=== PATIENT | male | born 1940 | race Caucasian/White ===

== ENCOUNTER 2017-10-25 09:02 | Inpatient (IN) | payer OTHER, BC ==
--- NOTE | 2017-10-25 09:55 | PDOC ---
History of Present Illness <Mukul Bell - Last Filed: 10/25/17 15:51> - General History Source: Patient Exam Limitations: No Limitations - History of Present Illness Presenting Symptoms: Chest Pain Timing/Duration: reports: resolved prior to arrival Severity/Quality: reports: moderate, pressure Location: reports: substernal Chest Pain Radiation: reports: no radiation Activities at Onset: reports: exertion Prior Chest Pain/Cardiac Workup: reports: No prior chest pain Nitro Today/Relief: Yes: no nitro taken today Aspirin Received prior to arrival (Core Measure): Yes: 325 mg x 1 Beta Tobin given by EMS (Core Measure): No Beta Tobin indicated at this time? (Core Measure): No Associated Symptoms: Yes: Chest Pain/pressure <Jessy Queen - Last Filed: 10/25/17 16:00> - General Chief Complaint: Chest Pain Stated Complaint: CHEST PRESSURE Time Seen by Provider: 10/25/17 09:23 - History of Present Illness Initial Comments: 10/25/17 09:30 77-year-old male with history of lymphoma presents to ED with complaints of sudden onset of chest pressure while digging in his front yard this morning. Patient states pressure wasn't tense and did not decrease 325 mg of Nia aspirin. Patient states while in route to the ED his symptoms did resolve. Patient states had no associated symptoms with episode including palpitations, dizziness, nausea, diaphoresis, or difficulty breathing. Patient states has had similar symptoms in the past but normally resolve by itself within seconds when he rests. Pt states did not disclose his symptoms before to Dr. Dailey and has not received a cardiac workup in the past including an echo. 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) Cardiac Disorders: No CVA: No COPD: No CHF: No Dementia: No Diabetes: No GI Disorders: Yes (TUBULAR ADENOMAS; DIVERTICULOSIS) Disorders: No HTN: No Hypercholesterolemia: Yes (DIET CONTROLLED) Liver Disease: No Seizures: No Thyroid Disease: No - Surgical History Abdominal Surgery: No Appendectomy: No Cardiac Surgery: No Cholecystectomy: No Lung Surgery: No Neurologic Surgery: No Orthopedic Surgery: No - Suicide/Smoking/Psychosocial Hx Smoking History: Never smoked Have you smoked in the past 12 months: No Information on smoking cessation initiated: No Hx Alcohol Use: Yes ([facility]) Drug/Substance Use Hx: No Hx Substance Use Treatment: No Patient Lives Alone: No Lives with/in: spouse/SO <Jessy Queen - Last Filed: 10/25/17 16:00> - Past Medical History Allergies/Adverse Reactions: Allergies Allergy/AdvReac Type Severity Reaction Status Date / Time No Known Drug Allergies Allergy Verified 10/25/17 09:06 Home Medications: Ambulatory Orders predniSONE [Deltasone -] 15 mg PO DAILY 10/30/15 Aspirin [Aspirin EC] 325 mg PO ONCE 10/25/17 Cardiac Specific PMH - Complaint Specific PMHX Pacemaker: No <Jessy Queen Last Filed: 10/25/17 16:00> Review of Systems - Review of Systems Able to Perform ROS?: No Constitutional: No: Symptoms Reported HEENTM: No: Symptoms Reported Respiratory: No: Symptoms reported Cardiac (ROS): Yes: Chest Pain, Chest Tightness ABD/GI: No: Symptoms Reported : No: Symptoms Reported Musculoskeletal: No: Symptoms Reported Integumentary: No: Symptoms Reported Neurological: No: Symptoms reported <Jessy Queen Last Filed: 10/25/17 16:00> *Physical Exam - Physical Exam General Appearance: Yes: Nourished, Appropriately Dressed. No: Apparent Distress HEENT: positive: EOMI, ALBERT. negative: Pale Conjunctivae Neck: positive: Supple Respiratory/Chest: positive: Lungs Clear, Normal Breath Sounds. negative: Chest Tender, Respiratory Distress, Accessory Muscle Use Cardiovascular: positive: Regular Rhythm, Regular Rate. negative: Murmur Gastrointestinal/Abdominal: positive: Soft. negative: Tenderness Extremity: positive: Normal Capillary Refill. negative: Pedal Edema Integumentary: positive: Normal Color, Warm, Moist Neurologic: positive: Normal Mood/Affect, Motor Strength 5/5 (ambulatory) <Jessy Queen - Last Filed: 10/25/17 16:00> - Vital Signs Last Vital Signs Temp Pulse Resp BP Pulse Ox 97.5 F L 84 18 138/90 97 10/25/17 09:03 10/25/17 09:03 10/25/17 09:03 10/25/17 09:03 10/25/17 09:03 Heart Score/ECG Review - History History: Slightly suspicious - Electrocardiogram EKG: Normal - Age Age: >/= 65 - Risk Factors Based on the list above the patient has:: No risk factors known - Troponin Troponin: </= normal limit - Score Heart Score - Total: 2 #2 ECG reviewed & interpreted by me at: 14:01 General ECG Interpretation: Sinus Rhythm (Normal sinus rhythm. rate 76. Flipped T waves noted in the to aVF and V5 and V6) - ECG Intrepretation Rhythm: Regular Rhythm (Sinus rhythm with fusion complexes. Rate 72. Early repolarization noted. QTC [address] elevation or depression) <Jessy Queen - Last Filed: 10/25/17 16:00> ED Treatment Course - LABORATORY CBC & Chemistry Diagram: 10/25/17 10:28 10/25/17 10:28 <Mukul Bell - Last Filed: 10/25/17 15:51> - LABORATORY CBC & Chemistry Diagram: 10/25/17 10:28 10/25/17 10:28 <Jessy Queen - Last Filed: 10/25/17 16:00> - ADDITIONAL ORDERS Additional order review: Laboratory Results 10/25/17 10/25/17 10/25/17 10:28 10:28 10:28 PT with INR 11.10 INR 0.98 Sodium 144 Potassium 4.3 Chloride 107 Carbon Dioxide 28 Anion Gap 9 BUN 25 H D Creatinine 1.5 H D Creat Clearance w eGFR 45.38 Random Glucose 88 Calcium 8.7 Magnesium 2.2 Total Bilirubin 0.3 AST 51 H D ALT 25 Alkaline Phosphatase 56 D Creatine Kinase 217 Creatine Kinase Index 5.2 H CK-MB (CK-2) 11.330 H Troponin I 1.69 H* D Total Protein 7.5 Albumin 3.3 L Urine Color Dk yellow Urine Appearance Slcloudy Urine pH 5.0 Ur Specific [place] 1.029 Urine Protein 2+ H Urine Glucose (UA) Negative Urine Ketones Trace H Urine Blood 3+ H Urine Nitrite Negative Urine Bilirubin Negative Urine Urobilinogen 2.0 Ur Leukocyte Esterase Negative Urine WBC (Auto) 5 Urine RBC (Auto) 19 Granular Casts 1 Urine Mucus Many 10/25/17 10:28 RBC Cancelled MCV Cancelled MCHC Cancelled RDW Cancelled MPV Cancelled Neutrophils % Cancelled Lymphocytes % Cancelled Monocytes % Cancelled Eosinophils % Cancelled Basophils % Cancelled - RADIOLOGY Radiology Studies Ordered: Category Date Time Status CHEST PA & LAT [RAD] Stat Radiology 10/25/17 09:39 Completed - Medications Given in the ED: ED Medications Discontinued Medications Generic Name Dose Route Start Last Admin Trade Name Freq PRN Reason Stop Dose Admin Sodium Chloride 1,000 mls @ 1,000 mls/hr 10/25/17 11:45 10/25/17 11:50 Normal Saline - IV 10/25/17 12:44 1,000 mls/hr ASDIR STA Administration Medical Decision Making <ArabellaMukul Sandhue - Last Filed: 10/25/17 15:51> <Jessy Queen - Last Filed: 10/25/17 16:00> - Medical Decision Making 10/25/17 15:51 Dr. Tomas Jane was called regarding the patient at 3:51pm Message left with answering center. [phone] (ArabellaMukul Richa) 10/25/17 09:59 Pt with episodic chest pressure lasting approximately 5 minutes. Patient took 3 and 25 mg of aspirin and came to the ER. Patient states symptoms resolved while in route to the ER. Patient is followed by Drs. Huyen Dailey and has no food taster. Patient concerning for acute coronary syndrome, angina, musculoskeletal pain. Patient with chest pain cardiac workup ordered and will consult patient's primary care doctor Dr. Dailey 10/25/17 11:[address] Hsu and is aware of patient's complaint and will update once labs are resulted. 10/25/17 11:55 Laboratory Tests 10/25/17 10/25/17 10:28 10:28 Sodium 144 Potassium 4.3 Chloride 107 Carbon Dioxide 28 Anion Gap 9 BUN 25 H D Creatinine 1.5 H D Creat Clearance w eGFR 45.38 Random Glucose 88 Calcium 8.7 Magnesium 2.2 Total Bilirubin 0.3 AST 51 H D ALT 25 Creatine Kinase 217 Troponin I 1.69 H* D Albumin 3.3 L Urine Protein 2+ H Urine Blood 3+ H Urine WBC (Auto) 5 Urine RBC (Auto) 19 Urine Mucus Many IVF ordered for labs and consult placed to Dr. Lucinda Marin food taster 10/25/17 13:[address] Lucinda Marin and will consult on patient. Patient will be admitted to telemetry inpatient. Patient made aware and is currently asymptomatic. Second troponin EKG ordered. 10/25/17 15:59 10/25/17 15:39 Laboratory Tests 10/25/17 13:30 Creatine Kinase 402 H Creatine Kinase Index 9.1 H* CK-MB (CK-2) 36.754 H Troponin I 11.00 H* D ordered for heparin drip. Call placed to Dr. Jane food taster 10/25/17 16:[address] Jane and states heparin drip is sufficient . patient does not have chest pain or have any acute changes in his EKG. (Jessy Queen) *DC/Admit/Observation/Transfer <Mukul Bell - Last Filed: 10/25/17 15:51> - Discharge Dispostion Admit: Yes <Jessy Queen - Last Filed: 10/25/17 16:00> Diagnosis at time of Disposition: Left chest pressure, Elevated troponin
[2017-10-25 10:40] LABS: URINE APPEARANCE SLCLOUDY; URINE BILIRUBIN NEGATIVE (<2.0 mg/dL); URINE COLOR DK YELLOW; URINE GLUCOSE (UA) NEGATIVE (NEGATIVE); URINE KETONE TRACE (NEGATIVE); URINE LEUK ESTERASE NEGATIVE (NEGATIVE); URINE NITRITE NEGATIVE (NEGATIVE); URINE PROTEIN 2+ (NEGATIVE)
[2017-10-25 10:43] LABS: GRANULAR CASTS 1 /lpf; URINE MUCUS MANY
[2017-10-25 10:52] LABS: INR 0.98 (0.82-1.09); PROTHROMBIN TIME (PATIENT) 11.1 SEC (9.7-13.0)
[2017-10-25 11:06] LABS: ALBUMIN 3.3 g/dl (3.4-5.0); ANION GAP 9 (8-16); BILIRUBIN,TOTAL 0.3 mg/dL (0.2-1.0); BLOOD UREA NITROGEN 25 mg/dL (7-18); CALCIUM 8.7 mg/dL (8.5-10.1); CHLORIDE 107 mmol/L (98-107); CO2 28 mmol/L (21-32); CREATININE 1.5 mg/dL (0.7-1.3); GLUCOSE,RANDOM 88 mg/dL (74-106); MAGNESIUM 2.2 mg/dL (1.8-2.4); POTASSIUM 4.3 mmol/L (3.5-5.1); SGOT/AST 51 U/L (15-37); SGPT/ALT 25 U/L (12-78); SODIUM 144 mmol/L (136-145); TOT PROT 7.5 g/dl (6.4-8.2)
[2017-10-25 11:22] LABS: ALK PHOS 56 U/L (45-117)
[2017-10-25] MEDS ORDERED: SODIUM CHLORIDE 1,000 ML IV STA (11:45)
--- NOTE | 2017-10-25 14:30 | EKG ---
Test Reason : Blood Pressure : / mmHG Vent. Rate : 076 BPM Atrial Rate : 076 BPM P-R Int : 164 ms QRS Dur : 086 ms QT Int : 368 ms P-R-T Axes : 058 038 007 degrees QTc Int : 414 ms NORMAL SINUS RHYTHM POSSIBLE LEFT ATRIAL ENLARGEMENT NONSPECIFIC T WAVE ABNORMALITY ABNORMAL ECG WHEN COMPARED WITH ECG OF 25-OCT-2017 12:18, NO SIGNIFICANT CHANGE WAS FOUND Confirmed by MD Oni, Cesar ([id number]) on 10/25/2017 2:29:54 PM Referred By: Confirmed By:Cesar Bunn MD
--- NOTE | 2017-10-25 14:31 | EKG ---
Test Reason : Blood Pressure : / mmHG Vent. Rate : 074 BPM Atrial Rate : 074 BPM P-R Int : 154 ms QRS Dur : 090 ms QT Int : 364 ms P-R-T Axes : 048 014 002 degrees QTc Int : 404 ms NORMAL SINUS RHYTHM POSSIBLE LEFT ATRIAL ENLARGEMENT NONSPECIFIC T WAVE ABNORMALITY ABNORMAL ECG WHEN COMPARED WITH ECG OF 25-OCT-2017 09:06, FUSION COMPLEXES ARE NO LONGER PRESENT ST NO LONGER ELEVATED IN INFERIOR LEADS T WAVE INVERSION NOW EVIDENT IN INFERIOR LEADS NONSPECIFIC T WAVE ABNORMALITY NOW EVIDENT IN LATERAL LEADS Confirmed by MD Oni, Cesar ([id number]) on 10/25/2017 2:31:27 PM Referred By: Confirmed By:Cesar Bunn MD
--- NOTE | 2017-10-25 14:32 | EKG ---
Test Reason : Blood Pressure : / mmHG Vent. Rate : 072 BPM Atrial Rate : 072 BPM P-R Int : 146 ms QRS Dur : 090 ms QT Int : 366 ms P-R-T Axes : 057 052 063 degrees QTc Int : 400 ms SINUS RHYTHM WITH MARKED SINUS ARRHYTHMIA WITH FUSION COMPLEXES ST ELEVATION, CONSIDER EARLY REPOLARIZATION, PERICARDITIS, OR INJURY ABNORMAL ECG WHEN COMPARED WITH ECG OF 01-DEC-2013 10:40, FUSION COMPLEXES ARE NOW PRESENT Confirmed by MD Bunn Daniel ([id number]) on 10/25/2017 2:32:17 PM Referred By: Confirmed By:Cesar Bunn MD
[2017-10-25] MEDS ORDERED: HEPARIN NA (PORCINE) 5,000 UNITS/ML 1ML VIAL IVPUSH ONE (15:57)
[2017-10-25] MEDS ORDERED: HEPARIN NA (PORCINE) 5,000 UNITS/ML 1ML VIAL ONE (16:10)
[2017-10-25] MEDS ORDERED: HEPARIN INFUSION - 25,000 UNITS/500 ML INFUS.BAG IVPB ONE (16:10)
[2017-10-25] MEDS: HEPARIN INFUSION - 25,000 UNITS/500 ML INFUS.BAG IVPB SCH (16:14)
[2017-10-25] MEDS ORDERED: CLOPIDOGREL BISULFATE 300 MG TABLET PO ONE (18:17)
--- NOTE | 2017-10-25 18:18 | HP ---
Admitting History and Physical - Primary Care Physician PCP: Jacinta Dailey - Admission Chief Complaint: chest pressure History of Present Illness: 77 yrs old male came to ER for chest pressure-- lasted for about 5 min- no dizziness, SOB, no diaphoresis Never been to see Manager Employment History Source: Patient Limitations to Obtaining History: No Limitations - Past Medical History Heme/Onc: Yes: Other (B cell Lymphoma) - Smoking History Smoking history: Never smoked Have you smoked in the past 12 months: No - Alcohol/Substance Use Hx Alcohol Use: Yes (OCC) Home Medications - Allergies Allergies/Adverse Reactions: Allergies Allergy/AdvReac Type Severity Reaction Status Date / Time No Known Drug Allergies Allergy Verified 10/25/17 09:06 - Home Medications Home Medications: Ambulatory Orders predniSONE [Deltasone -] 15 mg PO DAILY 10/30/15 Aspirin [Aspirin EC] 325 mg PO ONCE 10/25/17 Review of Systems - Review of Systems Constitutional: denies: Chills, Fever Cardiovascular: reports: Chest Pain. denies: Edema, Palpitations, Shortness of Breath Physical Examination Vital Signs: Vital Signs Temperature 98.4 F 10/25/17 16:47 Pulse Rate 73 10/25/17 16:47 Respiratory Rate 19 10/25/17 16:47 Blood Pressure 121/82 10/25/17 16:47 O2 Sat by Pulse Oximetry (%) 98 10/25/17 16:47 Constitutional: Yes: No Distress, Calm Cardiovascular: Yes: Regular Rate and Rhythm Respiratory: Yes: CTA Bilaterally Gastrointestinal: Yes: Normal Bowel Sounds, Soft. No: Tenderness Edema: No Labs: CBC, BMP 10/25/17 16:40 10/25/17 10:28 Imaging - Results Chest X-ray: Image Reviewed EKG: Image Reviewed Problem List - Problems (1) Elevated troponin Code(s): R74.8 - ABNORMAL LEVELS OF OTHER SERUM ENZYMES (2) Left chest pressure Code(s): R07.89 - OTHER CHEST PAIN (3) Lymphoma in remission Code(s): Z85.72 - PERSONAL HISTORY OF NON-HODGKIN LYMPHOMAS (4) NSTEMI (non-ST elevated myocardial infarction) Code(s): I21.4 - NON-ST ELEVATION (NSTEMI) MYOCARDIAL INFARCTION Assessment/Plan PLAN Elevated troponins started Heparin drip Cardiology evaluation start Statins, ASA, PLavix telemetry monitoring continue with prednisone
[2017-10-25 18:33] VITALS: BMI 25.8
[2017-10-25] MEDS: ASPIRIN 325 MG TABLET PO SCH (18:38)
--- NOTE | 2017-10-25 19:34 | PN ---
Progress Note (short form) - Note Progress Note: contacted Dr Jane about elevated troponins - pt does not have chest pain ,SOB Started heparin drip Stat dose-- ASA and Plavix, statin For cath Friday- trend troponins
[2017-10-25] MEDS ORDERED: ATORVASTATIN CA 80 MG TABLET (FP) PO ONE ×2 (19:35→20:00)
[2017-10-25] MEDS: METOPROLOL TARTRATE 25 MG TABLET (FP) PO SCH (21:04)
[2017-10-26] MEDS: HEPARIN INFUSION - 25,000 UNITS/500 ML INFUS.BAG IVPB SCH ×3 (06:34→20:59)
[2017-10-26] MEDS: ASPIRIN 325 MG TABLET PO SCH (09:25)
[2017-10-26] MEDS: METOPROLOL TARTRATE 25 MG TABLET (FP) PO SCH ×2 (09:25→20:59)
--- NOTE | 2017-10-26 09:42 | CON.CARD ---
Consult Consult Specialty:: Cardiology Referred by:: Dr. Rimma Perales Reason for Consultation:: Cardiac evaluation - History of Present Illness Chief Complaint: Chest pressure History of Present Illness: Patient is a 77 year old male with underlying history of Lymphoma currently in remission, received Rituxin (2 years ago) and on Prednisone currently, presents with complaints of mid sternal chest pressure yesterday morning. When he came into ED, chest pain had resolved. He took ASA 325 mg at home. Initial troponin was 1.69 which increased and peaked at 17. During the course of hospital stay, he has remained asymptomatic. He denies chest pain, shortness of breath or palpitation at this time. He denies paroxysmal nocturnal dyspnea or orthopnea. He denies fever or chills. He denies nausea, vomiting, diarrhea or abdominal pain. He denies headache or lightheadedness. ECG revealed sinus rhythm with T wave inversion in inferior and lateral leads. Patient was given IV Heparin, ASA , Plavix and high intensity statin. - History Source History Provided By: Patient, Medical Record Limitations to Obtaining History: No Limitations - Past Medical History Heme/Onc: Yes: Other (Lymphoma) - Past Surgical History Past Surgical History: Yes: Tonsillectomy - Alcohol/Substance Use Hx Alcohol Use: Yes (social) - Smoking History Smoking history: Never smoked Have you smoked in the past 12 months: No Home Medications - Allergies Allergies/Adverse Reactions: Allergies Allergy/AdvReac Type Severity Reaction Status Date / Time No Known Drug Allergies Allergy Verified 10/25/17 09:06 - Home Medications Home Medications: Ambulatory Orders predniSONE [Deltasone -] 15 mg PO DAILY 10/30/15 Aspirin [Aspirin EC] 325 mg PO ONCE 10/25/17 Family Disease History - Family Disease History Other Family History: History of diabetes mellitus Review of Systems - Review of Systems Constitutional: denies: Chills, Fever Cardiovascular: reports: Chest Pain. denies: Palpitations, Shortness of Breath Respiratory: denies: Cough, Hemoptysis, Orthopnea, PND, SOB, SOB on Exertion Gastrointestinal: denies: Abdominal Pain, Constipation, Diarrhea, Melena, Nausea , Rectal Bleeding, Vomiting Genitourinary: denies: Dysuria, Hematuria Musculoskeletal: denies: Back Pain, Joint Pain Neurological: denies: Dizziness, Headache, Numbness, Seizure, Syncope, Weakness Vital Signs: Vital Signs Temperature 98.1 F 10/26/17 06:00 Pulse Rate 76 10/26/17 06:00 Respiratory Rate 16 10/26/17 08:45 Blood Pressure 118/70 10/26/17 06:00 O2 Sat by Pulse Oximetry (%) 93 L 10/26/17 08:45 Constitutional: Yes: Well Nourished Eyes: Yes: PERRL HENT: Yes: Atraumatic Neck: Yes: Supple Respiratory: Yes: CTA Bilaterally Gastrointestinal: Yes: Normal Bowel Sounds, Soft. No: Tenderness Cardiovascular: Yes: Regular Rate and Rhythm JVD: No Carotid Bruit: No PMI: Non-Displaced Heart Sounds: Yes: S1, S2. No: Gallop Murmur: No: Systolic Murmur, Diastolic Murmur Edema: No - Other Data Labs, Other Data: CBC, BMP 10/25/17 16:40 10/25/17 10:28 INR, PTT INR 0.98 (0.82-1.09) 10/25/17 10:28 Troponin, BNP 10/25/17 10/25/17 10/25/17 10:28 13:30 16:40 Troponin I 1.69 H* D 11.00 H* D 17.10 H* D 10/25/17 10/26/17 21:40 05:20 Troponin I 13.44 H* 6.58 H* D Laboratory Results - last 24 hr 10/25/17 10/25/17 10/25/17 10:28 10:28 10:28 WBC Cancelled Corrected WBC (auto) Cancelled RBC Cancelled Hgb Cancelled Hct Cancelled MCV Cancelled MCH Cancelled MCHC Cancelled RDW Cancelled Plt Count Cancelled MPV Cancelled Absolute Neuts (auto) Absolute Lymphs (auto) Absolute Monos (auto) Absolute Eos (auto) Absolute Basos (auto) Add Manual Diff Neutrophils % Cancelled Lymphocytes % Cancelled Monocytes % Cancelled Eosinophils % Cancelled Basophils % Cancelled Nucleated RBC % Cancelled Platelet Estimate Cancelled Platelet Comment Cancelled Normal RBC Morphology PT with INR 11.10 INR 0.98 PTT (Actin FS) D-Dimer Sodium Potassium Chloride Carbon Dioxide Anion Gap BUN Creatinine Creat Clearance w eGFR Random Glucose Calcium Magnesium Total Bilirubin AST ALT Alkaline Phosphatase Creatine Kinase Creatine Kinase Index CK-MB (CK-2) Troponin I Total Protein Albumin Urine Color Dk yellow Urine Appearance Slcloudy Urine pH 5.0 Ur Specific [place] 1.029 Urine Protein 2+ H Urine Glucose (UA) Negative Urine Ketones Trace H Urine Blood 3+ H Urine Nitrite Negative Urine Bilirubin Negative Urine Urobilinogen 2.0 Ur Leukocyte Esterase Negative Urine WBC (Auto) 5 Urine RBC (Auto) 19 Granular Casts 1 Urine Mucus Many 10/25/17 10/25/17 10/25/17 10:28 13:30 13:30 WBC Cancelled Corrected WBC (auto) Cancelled RBC Cancelled Hgb Cancelled Hct Cancelled MCV Cancelled MCH Cancelled MCHC Cancelled RDW Cancelled Plt Count Cancelled MPV Cancelled Absolute Neuts (auto) Absolute Lymphs (auto) Absolute Monos (auto) Absolute Eos (auto) Absolute Basos (auto) Add Manual Diff Neutrophils % Cancelled Lymphocytes % Cancelled Monocytes % Cancelled Eosinophils % Cancelled Basophils % Cancelled Nucleated RBC % Cancelled Platelet Estimate Cancelled Platelet Comment Cancelled Normal RBC Morphology PT with INR INR PTT (Actin FS) D-Dimer Sodium 144 Potassium 4.3 Chloride 107 Carbon Dioxide 28 Anion Gap 9 BUN 25 H D Creatinine 1.5 H D Creat Clearance w eGFR 45.38 Random Glucose 88 Calcium 8.7 Magnesium 2.2 Total Bilirubin 0.3 AST 51 H D ALT 25 Alkaline Phosphatase 56 D Creatine Kinase 217 402 H Creatine Kinase Index 5.2 H 9.1 H* CK-MB (CK-2) 11.330 H 36.754 H Troponin I 1.69 H* D 11.00 H* D Total Protein 7.5 Albumin 3.3 L Urine Color Urine Appearance Urine pH Ur Specific [place] Urine Protein Urine Glucose (UA) Urine Ketones Urine Blood Urine Nitrite Urine Bilirubin Urine Urobilinogen Ur Leukocyte Esterase Urine WBC (Auto) Urine RBC (Auto) Granular Casts Urine Mucus 10/25/17 10/25/17 10/25/17 16:40 16:40 16:40 WBC Cancelled Corrected WBC (auto) Cancelled RBC Cancelled Hgb Cancelled Hct Cancelled MCV Cancelled MCH Cancelled MCHC Cancelled RDW Cancelled Plt Count Cancelled MPV Cancelled Absolute Neuts (auto) Cancelled Absolute Lymphs (auto) Cancelled Absolute Monos (auto) Cancelled Absolute Eos (auto) Cancelled Absolute Basos (auto) Cancelled Add Manual Diff Cancelled Neutrophils % Cancelled Lymphocytes % Cancelled Monocytes % Cancelled Eosinophils % Cancelled Basophils % Cancelled Nucleated RBC % Cancelled Platelet Estimate Cancelled Platelet Comment Cancelled Normal RBC Morphology Cancelled PT with INR INR PTT (Actin FS) D-Dimer 424 Sodium Potassium Chloride Carbon Dioxide Anion Gap BUN Creatinine Creat Clearance w eGFR Random Glucose Calcium Magnesium Total Bilirubin AST ALT Alkaline Phosphatase Creatine Kinase 405 H Creatine Kinase Index 10.7 H* CK-MB (CK-2) 43.592 H Troponin I 17.10 H* D Total Protein Albumin Urine Color Urine Appearance Urine pH Ur Specific [place] Urine Protein Urine Glucose (UA) Urine Ketones Urine Blood Urine Nitrite Urine Bilirubin Urine Urobilinogen Ur Leukocyte Esterase Urine WBC (Auto) Urine RBC (Auto) Granular Casts Urine Mucus 10/25/17 10/25/17 10/26/17 21:40 22:20 05:20 WBC Corrected WBC (auto) RBC Hgb Hct MCV MCH MCHC RDW Plt Count MPV Absolute Neuts (auto) Absolute Lymphs (auto) Absolute Monos (auto) Absolute Eos (auto) Absolute Basos (auto) Add Manual Diff Neutrophils % Lymphocytes % Monocytes % Eosinophils % Basophils % Nucleated RBC % Platelet Estimate Platelet Comment Normal RBC Morphology PT with INR INR PTT (Actin FS) 97.5 H D D-Dimer Sodium Potassium Chloride Carbon Dioxide Anion Gap BUN Creatinine Creat Clearance w eGFR Random Glucose Calcium Magnesium Total Bilirubin AST ALT Alkaline Phosphatase Creatine Kinase 312 H 226 Creatine Kinase Index 10.9 H* 10.1 H* CK-MB (CK-2) 34.249 H 23.019 H Troponin I 13.44 H* 6.58 H* D Total Protein Albumin Urine Color Urine Appearance Urine pH Ur Specific [place] Urine Protein Urine Glucose (UA) Urine Ketones Urine Blood Urine Nitrite Urine Bilirubin Urine Urobilinogen Ur Leukocyte Esterase Urine WBC (Auto) Urine RBC (Auto) Granular Casts Urine Mucus Sinus rhythm with T wave inversion in inferior and lateral leads Imaging - Results Chest X-ray: Report Reviewed (Atelectasis) EKG: Report Reviewed Problem List - Problems (1) CAD (coronary artery disease) Code(s): I25.10 - ATHSCL HEART DISEASE OF [place] CORONARY ARTERY W/O ANG PCTRS Qualifiers: Coronary Disease-Associated Artery/Lesion type: [place] artery [place] vs. transplanted heart: [place] heart Associated angina: with unstable angina Qualified Code(s): I25.110 - Atherosclerotic heart disease of [place] coronary artery with unstable angina pectoris (2) NSTEMI (non-ST elevated myocardial infarction) Code(s): I21.4 - NON-ST ELEVATION (NSTEMI) MYOCARDIAL INFARCTION (3) Lymphoma in remission Code(s): Z85.72 - PERSONAL HISTORY OF NON-HODGKIN LYMPHOMAS (4) Elevated troponin Code(s): R74.8 - ABNORMAL LEVELS OF OTHER SERUM ENZYMES Assessment/Plan 1. CAD post NSTEMI 2. History of Lymphoma on steroids PLAN: 1. IV Heparin for now 2. ASA and Plavix 3. Metoprolol 25 mg BID and Lipitor 80 mg daily until further instruction 4. Discussed indication for cardiac catheterization/coronary angiography +/- PCI /stent. Patient agrees to proceed tomorrow at [facility] and will make arrangement 5. Trend troponin - trending down 6. Transthoracic echocardiography to assess LV/RV and valvular function (to be done in AM) Further plans are to follow Tomas Jane MD
[2017-10-26] MEDS ORDERED: CLOPIDOGREL BISULFATE 75 MG TABLET (FP) PO SCH (10:00)
[2017-10-26] MEDS: ASPIRIN 81 MG CHEWABLE TABLETS PO SCH (10:53)
--- NOTE | 2017-10-26 10:53 | PN ---
Progress Note, Physician Chief Complaint: at bedside no c/o chest pressure - Current Medication List Current Medications: Active Medications Aspirin (Asa -) 81 mg PO DAILY [facility] Atorvastatin Calcium (Lipitor -) 80 mg PO HS [facility] Clopidogrel Bisulfate (Plavix -) 75 mg PO DAILY [facility] Heparin Sodium/Dextrose (Heparin Infusion -) 25,000 units in 500 mls @ 20 mls/ hr IVPB TITR [facility]; 1,000 UNITS/HR PRN Reason: Protocol Last Admin: 10/26/17 06:34 Dose: 800 units/hr, 16 mls/hr Metoprolol Tartrate (Lopressor -) 25 mg PO BID [facility] Last Admin: 10/26/17 09:25 Dose: 25 mg - Objective Vital Signs: Vital Signs Temperature 98.1 F 10/26/17 06:00 Pulse Rate 76 10/26/17 06:00 Respiratory Rate 16 10/26/17 08:45 Blood Pressure 118/70 10/26/17 06:00 O2 Sat by Pulse Oximetry (%) 93 L 10/26/17 08:45 Constitutional: Yes: No Distress Cardiovascular: Yes: Regular Rate and Rhythm Respiratory: Yes: CTA Bilaterally Gastrointestinal: Yes: Normal Bowel Sounds, Soft. No: Tenderness Edema: No Labs: CBC, BMP 10/25/17 16:40 10/25/17 10:28 INR, PTT INR 0.98 (0.82-1.09) 10/25/17 10:28 Problem List - Problems (1) Elevated troponin Code(s): R74.8 - ABNORMAL LEVELS OF OTHER SERUM ENZYMES (2) Left chest pressure Code(s): R07.89 - OTHER CHEST PAIN (3) Lymphoma in remission Code(s): Z85.72 - PERSONAL HISTORY OF NON-HODGKIN LYMPHOMAS (4) NSTEMI (non-ST elevated myocardial infarction) Code(s): I21.4 - NON-ST ELEVATION (NSTEMI) MYOCARDIAL INFARCTION Assessment/Plan PLAN troponins trending down Cardiology eval appreciated On Heparin infusion plan to transfer pt to [facility] for cardiac cath tomorrow continue with Lipitor, Metoprolol, ASA, Plavix
[2017-10-26] MEDS: predniSONE 10 MG TABLET (UD) PO SCH (11:29)
[2017-10-26 12:02] LABS: CHLORIDE 109 mmol/L (98-107); POTASSIUM 4.1 mmol/L (3.5-5.1); SODIUM 142 mmol/L (136-145)
[2017-10-26 12:08] LABS: HEMOGLOBIN 11.6 GM/dL (11.7-16.9); MCH 25.2 pg (25.7-33.7); MCHC 33.3 g/dl (32.0-35.9); MEAN CELL VOLUME 75.6 fl (80-96); MEAN PLT VOLUME 7.2 fl (7.5-11.1); PLATELET COUNT 109 K/MM3 (134-434); RBC 4.63 M/mm3 (4.00-5.60); RDW 17.3 % (11.9-15.9); WHITE BLOOD COUNT 2.2 K/mm3 (4.0-10.0)
[2017-10-26 13:05] LABS: ANION GAP 11 (8-16); BLOOD UREA NITROGEN 20 mg/dL (7-18); CALCIUM 7.6 mg/dL (8.5-10.1); CO2 22 mmol/L (21-32); CREATININE 1.2 mg/dL (0.7-1.3); GLUCOSE,RANDOM 101 mg/dL (74-106)
--- NOTE | 2017-10-26 14:31 | EKG ---
Test Reason : Blood Pressure : / mmHG Vent. Rate : 070 BPM Atrial Rate : 070 BPM P-R Int : 148 ms QRS Dur : 088 ms QT Int : 386 ms P-R-T Axes : 037 005 -61 degrees QTc Int : 416 ms NORMAL SINUS RHYTHM POSSIBLE INFERIOR INFARCT , AGE UNDETERMINED T WAVE ABNORMALITY, CONSIDER LATERAL ISCHEMIA ABNORMAL ECG WHEN COMPARED WITH ECG OF 25-OCT-2017 13:50, BORDERLINE CRITERIA FOR INFERIOR INFARCT ARE NOW PRESENT T WAVE INVERSION NOW EVIDENT IN ANTERIOR LEADS Confirmed by MD Oni, Cesar ([id number]) on 10/26/2017 2:30:57 PM Referred By: Confirmed By:Cesar Bunn MD
[2017-10-26] MEDS: CLOPIDOGREL BISULFATE 75 MG TABLET (FP) PO SCH (20:58)
[2017-10-26] MEDS ORDERED: ATORVASTATIN CA 80 MG TABLET (FP) PO SCH (22:00)
[2017-10-27] MEDS: CLOPIDOGREL BISULFATE 75 MG TABLET (FP) PO SCH (09:47)
[2017-10-27] MEDS: METOPROLOL TARTRATE 25 MG TABLET (FP) PO SCH (09:47)
[2017-10-27] MEDS: predniSONE 10 MG TABLET (UD) PO SCH (09:47)
[2017-10-27] MEDS: ASPIRIN 81 MG CHEWABLE TABLETS PO SCH (09:48)
[2017-10-27 10:42] LABS: INR 1.04 (0.82-1.09); PROTHROMBIN TIME (PATIENT) 11.8 SEC (9.7-13.0)
--- NOTE | 2017-10-27 10:48 | PN ---
Progress Note, Physician Chief Complaint: Not in distress History of Present Illness: Patient was seen and examined. Awake and alert. Chart was reviewed Denies chest pain, SOB or palpitations Discussed indication for cardiac catheterization in detail again. He is to be transferred later this morning to [facility] - Current Medication List Current Medications: Active Medications Aspirin (Asa -) 81 mg PO DAILY [facility] Last Admin: 10/27/17 09:48 Dose: 81 mg Atorvastatin Calcium (Lipitor -) 80 mg PO HS [facility] Last Admin: 10/26/17 20:59 Dose: 80 mg Clopidogrel Bisulfate (Plavix -) 75 mg PO DAILY [facility] Last Admin: 10/27/17 09:47 Dose: 75 mg Heparin Sodium/Dextrose (Heparin Infusion -) 25,000 units in 500 mls @ 20 mls/ hr IVPB TITR [facility]; 1,000 UNITS/HR PRN Reason: Protocol Last Admin: 10/26/17 20:59 Dose: 800 units/hr, 16 mls/hr Metoprolol Tartrate (Lopressor -) 25 mg PO BID [facility] Last Admin: 10/27/17 09:47 Dose: 25 mg Prednisone (Deltasone -) 15 mg PO DAILY [facility] Last Admin: 10/27/17 09:47 Dose: 15 mg - Objective Vital Signs: Vital Signs Temperature 97.6 F 10/27/17 06:00 Pulse Rate 72 10/27/17 06:00 Respiratory Rate 16 10/27/17 06:00 Blood Pressure 126/62 10/27/17 06:00 O2 Sat by Pulse Oximetry (%) 94 L 10/26/17 21:00 Constitutional: Yes: Well Nourished Eyes: Yes: PERRL HENT: Yes: Atraumatic Neck: Yes: Supple Cardiovascular: Yes: Regular Rate and Rhythm, S1, S2 Respiratory: Yes: CTA Bilaterally Gastrointestinal: Yes: Normal Bowel Sounds, Soft. No: Tenderness Edema: No Additional Findings/Remarks: - Review of Systems Constitutional: denies: Chills, Fever Cardiovascular: reports: Chest Pain. denies: Palpitations, Shortness of Breath Respiratory: denies: Cough, Hemoptysis, Orthopnea, PND, SOB, SOB on Exertion Gastrointestinal: denies: Abdominal Pain, Constipation, Diarrhea, Melena, Nausea , Rectal Bleeding, Vomiting Genitourinary: denies: Dysuria, Hematuria Musculoskeletal: denies: Back Pain, Joint Pain Neurological: denies: Dizziness, Headache, Numbness, Seizure, Syncope, Weakness Labs: INR, PTT INR 1.04 (0.82-1.09) 10/27/17 10:14 Laboratory Results - last 24 hr 10/26/17 10/26/17 10/27/17 06:35 11:15 06:30 WBC Corrected WBC (auto) RBC Hgb Hct MCV MCH MCHC RDW Plt Count MPV Neutrophils % Lymphocytes % Monocytes % Eosinophils % Basophils % Nucleated RBC % Platelet Estimate Platelet Comment PT with INR INR PTT (Actin FS) 76.3 H Sodium 142 Potassium 4.1 Chloride 109 H Carbon Dioxide 22 D Anion Gap 11 BUN 20 H Creatinine 1.2 Random Glucose 101 Calcium 7.6 L Creatine Kinase 178 Creatine Kinase Index 9.4 H* CK-MB (CK-2) 16.867 H Troponin I 4.76 H* Triglycerides Cholesterol Total LDL Cholesterol HDL Cholesterol Stool Occult Blood Negative 10/27/17 10/27/17 10/27/17 06:30 06:30 10:14 WBC Cancelled Corrected WBC (auto) Cancelled RBC Cancelled Hgb Cancelled 12.7 Hct Cancelled 37.2 MCV Cancelled 75.3 L MCH Cancelled 25.8 MCHC Cancelled 34.2 RDW Cancelled 17.2 H Plt Count Cancelled MPV Cancelled Neutrophils % Cancelled Lymphocytes % Cancelled Monocytes % Cancelled Eosinophils % Cancelled Basophils % Cancelled Nucleated RBC % Cancelled Platelet Estimate Cancelled Platelet Comment Cancelled PT with INR INR PTT (Actin FS) Sodium 143 Potassium 4.0 Chloride 113 H Carbon Dioxide 24 Anion Gap 6 L BUN 18 Creatinine 1.3 Random Glucose 91 Calcium 8.1 L Creatine Kinase 93 Creatine Kinase Index CK-MB (CK-2) Troponin I 2.70 H* D Triglycerides 233 H D Cholesterol 236 H Total LDL Cholesterol 161 H HDL Cholesterol 47 D Stool Occult Blood 10/27/17 10:14 WBC Corrected WBC (auto) RBC Hgb Hct MCV MCH MCHC RDW Plt Count MPV Neutrophils % Lymphocytes % Monocytes % Eosinophils % Basophils % Nucleated RBC % Platelet Estimate Platelet Comment PT with INR 11.80 INR 1.04 PTT (Actin FS) Sodium Potassium Chloride Carbon Dioxide Anion Gap BUN Creatinine Random Glucose Calcium Creatine Kinase Creatine Kinase Index CK-MB (CK-2) Troponin I Triglycerides Cholesterol Total LDL Cholesterol HDL Cholesterol Stool Occult Blood Problem List - Problems (1) CAD (coronary artery disease) Code(s): I25.10 - ATHSCL HEART DISEASE OF [place] CORONARY ARTERY W/O ANG PCTRS Qualifiers: Coronary Disease-Associated Artery/Lesion type: [place] artery [place] vs. transplanted heart: [place] heart Associated angina: with unstable angina Qualified Code(s): I25.110 - Atherosclerotic heart disease of [place] coronary artery with unstable angina pectoris (2) NSTEMI (non-ST elevated myocardial infarction) Code(s): I21.4 - NON-ST ELEVATION (NSTEMI) MYOCARDIAL INFARCTION (3) Lymphoma in remission Code(s): Z85.72 - PERSONAL HISTORY OF NON-HODGKIN LYMPHOMAS (4) Elevated troponin Code(s): R74.8 - ABNORMAL LEVELS OF OTHER SERUM ENZYMES Assessment/Plan 1. CAD post NSTEMI 2. 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 Low WBC and platelet likely due to #2 PLAN: 1. Discontinue IV Heparin when he is transferred 2. ASA and Plavix 3. Metoprolol 25 mg BID and Lipitor 80 mg daily until further instruction 4. Discussed indication for cardiac catheterization/coronary angiography +/- PCI /stent. Patient agrees to proceed today at [facility] 5. Troponin - trending down 6. Transthoracic echocardiography to assess LV/RV and valvular function Further plans are to follow. Patient was seen, examined and counseled for 25 min Tomas Jane MD
[2017-10-27 10:59] VITALS: BP 110/72; PULSE 85; TEMP 98.5
[2017-10-27 11:38] LABS: HEMATOCRIT 37.2 % (35.4-49); HEMOGLOBIN 12.7 GM/dL (11.7-16.9); MCH 25.8 pg (25.7-33.7); MCHC 34.2 g/dl (32.0-35.9); MEAN CELL VOLUME 75.3 fl (80-96); MEAN PLT VOLUME 7.2 fl (7.5-11.1); PLATELET COUNT 134 K/MM3 (134-434); RBC 4.94 M/mm3 (4.00-5.60); RDW 17.2 % (11.9-15.9)
[2017-10-27 11:51] LABS: ANION GAP 6 (8-16); BLOOD UREA NITROGEN 18 mg/dL (7-18); CALCIUM 8.1 mg/dL (8.5-10.1); CHLORIDE 113 mmol/L (98-107); CHOLESTEROL 236 mg/dL (50-200); CO2 24 mmol/L (21-32); CREATININE 1.3 mg/dL (0.7-1.3); GLUCOSE,RANDOM 91 mg/dL (74-106); HDL CHOLESTEROL 47 mg/dL (40-60); SODIUM 143 mmol/L (136-145); TRIGLYCERIDES 233 mg/dL (35-160)
--- NOTE | 2017-10-27 12:26 | DS ---
Physical Examination Vital Signs: Vital Signs Temperature 98.5 F 10/27/17 10:00 Pulse Rate 85 10/27/17 10:00 Respiratory Rate 18 10/27/17 10:00 Blood Pressure 110/72 10/27/17 10:00 O2 Sat by Pulse Oximetry (%) 96 10/27/17 10:00 Findings/Remarks: pt seen/ examined chart reviewed comfortable denies cp/sob. at beds side troponin coming down scheduled for transfer today for cath - Doni Constitutional: Yes: No Distress, Calm Eyes: Yes: Conjunctiva Clear Neck: Yes: Supple Cardiovascular: Yes: Regular Rate and Rhythm Respiratory: Yes: CTA Bilaterally Gastrointestinal: Yes: Soft Edema: No Neurological: Yes: Alert Labs: CBC, BMP 10/27/17 10:14 10/27/17 06:30 Discharge Summary Reason For Visit: ELEVATED TROPONIN LEVEL Current Active Problems CAD (coronary artery disease) (Acute) Elevated troponin (Acute) Left chest pressure (Acute) Lymphoma in remission (Acute) NSTEMI (non-ST elevated myocardial infarction) (Acute) Hospital Course: Admitted for chest pressure +ve troponins--NSTMI Treated appropriately Continue present care. meds reviewed. Transfer today for Cardiac Cath Discussed with pt / Discussed with nursing staff also Condition: Stable - Instructions Referrals: Jacinta Dailey MD [Primary Care Provider] - Disposition: TRANSFER ACUTE CARE/OTHER HOSP - Home Medications Comprehensive Discharge Medication List: Ambulatory Orders predniSONE [Deltasone -] 15 mg PO DAILY 10/30/15 Aspirin [Aspirin EC] 325 mg PO ONCE 10/25/17
[2017-10-27 12:52] LABS: WHITE BLOOD COUNT 9.9 K/mm3 (4.0-10.0)
--- NOTE | 2017-10-28 09:16 | PN ---
Progress Note (short form) - Note Progress Note: On 10/27/2017, patient underwent LHC at [facility] demonstrating 90% ulcerated LCx-OM lesion, nonobstructive LAD, normal RCA, preserved LV fxn with normal LVEDP 8 mmHg and mild anterolateral hypokinesis. Patient underwent implant Synergy 2.5 x 32 mm RHONA post-dilated with NC Euphora 2.75 x 20 mm@ 14 WILLARD. Mynx deployed Rt JUNIOR [place] access site, no complications, stable for optimal medical therapy for secondary prevention of cardiovascular disease and f/u with cardiology office . Primary team informed of care plan.
== END 2017-10-27 14:44 | disposition short-term general hospital (02) | DRG 281 ==
LOC: JER 09:02 → JERBED 13:04 → J4W 17:54
PROVIDERS: ADMIT Internal Medicine; ATTEND Internal Medicine
DX: I21.4 Non-ST elevation (NSTEMI) myocardial infarction (principal); J98.11 Atelectasis; I25.10 Atherosclerotic heart disease of native coronary artery without angina pectoris; Z85.72 Personal history of non-Hodgkin lymphomas
CPT/HCPCS: 36415; 71046-TC-FY; 80048; 80053; 80061; 81003; 81015; 82272; 82550; 82553; 83721; 83735; 84484; 85027; 85379; 85610; 85730; 93005; 93010; 93306-TC; 99285-25; J1644; J7030

== ENCOUNTER 2021-05-16 04:36 | Day surgery (SDC) | payer OTHER, BC ==
[2021-05-14 13:18] VITALS: BMI 23.2
[2021-05-16 09:01] VITALS: TEMP 97.1
[2021-05-16 09:28] VITALS: BP 103/64; PULSE 68
== END 2021-05-16 10:18 | disposition home or self-care (01) ==
LOC: JASU-ENDO 04:36
PROVIDERS: ATTEND Internal Medicine Gastroenterology
PROC: 0DBL8ZX Excision of Transverse Colon, Via Natural or Artificial Opening Endoscopic, Diagnostic (ICD-10-PCS; 2021-05-16)
PROC: 0DBH8ZX Excision of Cecum, Via Natural or Artificial Opening Endoscopic, Diagnostic (ICD-10-PCS; principal; 2021-05-16 08:00)
DX: Z12.11 Encounter for screening for malignant neoplasm of colon (principal); Z86.010 Personal history of colon polyps; D12.0 Benign neoplasm of cecum; D12.3 Benign neoplasm of transverse colon; K64.8 Other hemorrhoids; K57.30 Diverticulosis of large intestine without perforation or abscess without bleeding
CPT/HCPCS: 88305-TC

== ENCOUNTER 2022-05-15 07:48 | Inpatient (IN) | payer OTHER, BC ==
[2022-05-15 08:00] VITALS: BMI 22.2
[2022-05-15 10:33] LABS: CHLORIDE 109 mmol/L (98-107); SODIUM 145 mmol/L (136-145)
[2022-05-15 10:35] LABS: BLOOD UREA NITROGEN 72.8 mg/dL (7-18); CALCIUM 8.4 mg/dL (8.5-10.1)
[2022-05-15 10:36] LABS: ALBUMIN 2.7 g/dl (3.4-5.0); ANION GAP 13 MMOL/L (8-16); CO2 23 mmol/L (21-32); GLUCOSE,RANDOM 94 mg/dL (74-106); LACTIC ACID 2.2 mmol/L (0.4-2.0)
[2022-05-15 10:36] LABS: INR 1.09 (0.83-1.09); PROTHROMBIN TIME (PATIENT) 12.5 SEC (9.7-13.0)
[2022-05-15 10:39] LABS: SGOT/AST 34 U/L (15-37); SGPT/ALT 22 U/L (13-61)
[2022-05-15 10:41] LABS: BILIRUBIN,TOTAL 0.3 mg/dL (0.2-1); TOT PROT 6.6 g/dl (6.4-8.2)
[2022-05-15 10:42] LABS: ALK PHOS 94 U/L (45-117)
[2022-05-15 10:45] LABS: CHLORIDE 109 mmol/L (98-107); SODIUM 144 mmol/L (136-145)
[2022-05-15 10:47] LABS: CREATININE 10.2 mg/dL (0.55-1.3)
[2022-05-15 10:47] LABS: CALCIUM 8.2 mg/dL (8.5-10.1)
[2022-05-15 10:48] LABS: ALBUMIN 2.6 g/dl (3.4-5.0); ANION GAP 10 MMOL/L (8-16); BLOOD UREA NITROGEN 71.5 mg/dL (7-18); CO2 25 mmol/L (21-32); EPI CELLS 3 /uL (0-25.1); GLUCOSE,RANDOM 100 mg/dL (74-106); HYALINE CASTS 0 /uL (0-3.1); URINE APPEARANCE CLEAR; URINE BACTERIA 6 /uL (0-1359); URINE BILIRUBIN NEGATIVE (NEGATIVE); URINE COLOR YELLOW; URINE GLUCOSE (UA) NEGATIVE (NEGATIVE); URINE KETONE NEGATIVE (NEGATIVE); URINE LEUK ESTERASE NEGATIVE (NEGATIVE); URINE NITRITE NEGATIVE (NEGATIVE); URINE PROTEIN 2+ (NEGATIVE); URINE RBC 34 /uL (0-23.9); URINE UROBILINOGEN 0.2 mg/dL (0.2-1.0); URINE WBC 6 /uL (0-25.8)
[2022-05-15 10:51] LABS: SGOT/AST 33 U/L (15-37); SGPT/ALT 21 U/L (13-61)
[2022-05-15 10:54] LABS: ALK PHOS 91 U/L (45-117); BILIRUBIN,TOTAL 0.5 mg/dL (0.2-1)
[2022-05-15 11:02] LABS: HEMOGLOBIN 10.5 GM/dL (11.7-16.9); MCH 24.3 pg (25.7-33.7); MCHC 32.9 g/dl (32.0-35.9); MEAN CELL VOLUME 73.8 fl (80-96); MEAN PLT VOLUME 7.5 fl (7.5-11.1); RBC 4.34 M/mm3 (4.00-5.60)
[2022-05-15 11:03] LABS: WHITE BLOOD COUNT 20.6 K/mm3 (4.0-10.0)
[2022-05-15 11:04] LABS: PLATELET COUNT 150 10^3/uL (134-434)
[2022-05-15 11:05] LABS: CREATININE 10.2 mg/dL (0.55-1.3)
[2022-05-15 11:45] LABS: ANISOCYTOSIS 2+; PLATELET ESTIMATE ADEQUATE; ROULEAU 2+
[2022-05-15] MEDS ORDERED: SODIUM CHLORIDE 0.45% 1,000 ML IV SCH (13:45)
[2022-05-15] MEDS: SODIUM CHLORIDE 0.45% 1,000 ML IV SCH (13:48)
[2022-05-15] MEDS: ACETAMINOPHEN 325 MG TABLET (FP) PO PRN (20:22)
[2022-05-16] MEDS: LEVOTHYROXINE NA 25 MCG TABLET (FP) PO SCH (06:31)
[2022-05-16] MEDS ORDERED: predniSONE 5 MG TABLET (UD) PO SCH (10:00)
[2022-05-16 10:15] LABS: CHLORIDE 112 mmol/L (98-107); SODIUM 143 mmol/L (136-145)
[2022-05-16 10:20] LABS: CALCIUM 7.8 mg/dL (8.5-10.1)
[2022-05-16 10:21] LABS: ALBUMIN 2.2 g/dl (3.4-5.0); ANION GAP 10 MMOL/L (8-16); BLOOD UREA NITROGEN 66.5 mg/dL (7-18); CO2 21 mmol/L (21-32); GLUCOSE,RANDOM 85 mg/dL (74-106)
[2022-05-16 10:23] LABS: SGPT/ALT 15 U/L (13-61)
[2022-05-16 10:24] LABS: SGOT/AST 26 U/L (15-37)
[2022-05-16 10:25] LABS: BILIRUBIN,TOTAL 0.4 mg/dL (0.2-1); TOT PROT 5.8 g/dl (6.4-8.2)
[2022-05-16 10:26] LABS: ALK PHOS 73 U/L (45-117)
[2022-05-16 10:37] LABS: HEMATOCRIT 28.5 % (35.4-49); HEMOGLOBIN 9.5 GM/dL (11.7-16.9); MCH 24.7 pg (25.7-33.7); MCHC 33.3 g/dl (32.0-35.9); MEAN CELL VOLUME 74.4 fl (80-96); MEAN PLT VOLUME 7.5 fl (7.5-11.1); RBC 3.83 M/mm3 (4.00-5.60); RDW 18.6 % (11.9-15.9)
[2022-05-16 10:38] LABS: WHITE BLOOD COUNT 15.3 K/mm3 (4.0-10.0)
[2022-05-16 10:39] LABS: PLATELET COUNT 107 10^3/uL (134-434)
[2022-05-16 11:24] LABS: CREATININE 9.4 mg/dL (0.55-1.3)
[2022-05-16 11:27] LABS: ANISOCYTOSIS 2+; MACROCYTOSIS 0
[2022-05-16 12:45] LABS: EPI CELLS 1 /uL (0-25.1); HYALINE CASTS 0 /uL (0-3.1); URINE APPEARANCE CLEAR; URINE BACTERIA 4 /uL (0-1359); URINE BILIRUBIN NEGATIVE (NEGATIVE); URINE COLOR YELLOW; URINE GLUCOSE (UA) NEGATIVE (NEGATIVE); URINE KETONE NEGATIVE (NEGATIVE); URINE LEUK ESTERASE NEGATIVE (NEGATIVE); URINE NITRITE NEGATIVE (NEGATIVE); URINE PROTEIN 1+ (NEGATIVE); URINE RBC 10 /uL (0-23.9); URINE UROBILINOGEN 0.2 mg/dL (0.2-1.0); URINE WBC 3 /uL (0-25.8)
[2022-05-16] MEDS: SODIUM CHLORIDE 0.45% 1,000 ML IV SCH (16:25)
[2022-05-17] MEDS: LEVOTHYROXINE NA 25 MCG TABLET (FP) PO SCH (06:28)
[2022-05-17] MEDS: SODIUM CHLORIDE 0.45% 1,000 ML IV SCH ×3 (06:30→16:07)
[2022-05-17 09:41] LABS: CHLORIDE 113 mmol/L (98-107); SODIUM 143 mmol/L (136-145)
[2022-05-17] MEDS: predniSONE 5 MG TABLET (UD) PO SCH (09:43)
[2022-05-17 09:48] LABS: BLOOD UREA NITROGEN 66.5 mg/dL (7-18); GLUCOSE,RANDOM 89 mg/dL (74-106)
[2022-05-17 09:50] LABS: ALBUMIN 2.2 g/dl (3.4-5.0); CALCIUM 7.6 mg/dL (8.5-10.1)
[2022-05-17 09:51] LABS: ANION GAP 10 MMOL/L (8-16); CO2 20 mmol/L (21-32); SGOT/AST 24 U/L (15-37)
[2022-05-17 09:52] LABS: BILIRUBIN,TOTAL 0.7 mg/dL (0.2-1)
[2022-05-17 09:53] LABS: ALK PHOS 70 U/L (45-117); SGPT/ALT 16 U/L (13-61)
[2022-05-17 09:54] LABS: CREATININE 8.5 mg/dL (0.55-1.3)
[2022-05-17 11:04] LABS: HEMATOCRIT 25.9 % (35.4-49); HEMOGLOBIN 8.9 GM/dL (11.7-16.9); MCHC 34.3 g/dl (32.0-35.9); MEAN CELL VOLUME 72.9 fl (80-96); MEAN PLT VOLUME 8.5 fl (7.5-11.1); PLATELET COUNT 95 10^3/uL (134-434); RBC 3.56 M/mm3 (4.00-5.60); RDW 18.4 % (11.9-15.9)
[2022-05-17 11:05] LABS: WHITE BLOOD COUNT 13.5 K/mm3 (4.0-10.0)
[2022-05-17] MEDS: CLOPIDOGREL BISULFATE 75 MG TABLET (FP) PO SCH (12:38)
[2022-05-17 14:12] LABS: ANISOCYTOSIS 2+; MACROCYTOSIS 0; ROULEAU 1+
[2022-05-17] MEDS: HEPARIN NA (PORCINE) 5,000 UNITS/ML 1ML VIAL SQ SCH ×2 (16:06→22:15)
[2022-05-17 17:07] LABS: FREE KAPPA,SERUM 27.2 mg/L (3.3-19.4)
[2022-05-17] MEDS: ROSUVASTATIN CA 10 MG TABLET PO SCH (22:15)
[2022-05-18] MEDS: LEVOTHYROXINE NA 25 MCG TABLET (FP) PO SCH (06:57)
[2022-05-18] MEDS: CLOPIDOGREL BISULFATE 75 MG TABLET (FP) PO SCH (10:25)
[2022-05-18] MEDS: predniSONE 5 MG TABLET (UD) PO SCH (10:25)
[2022-05-18] MEDS: MIRTAZAPINE 15 MG TABLET (FP) PO SCH (10:25)
[2022-05-18] MEDS: HEPARIN NA (PORCINE) 5,000 UNITS/ML 1ML VIAL SQ SCH ×2 (10:25→21:07)
[2022-05-18] MEDS: NEBIVOLOL 2.5 MG TABLET (FP) PO SCH (10:25)
[2022-05-18] MEDS: SODIUM CHLORIDE 0.45% 1,000 ML IV SCH (17:50)
[2022-05-18] MEDS: ROSUVASTATIN CA 10 MG TABLET PO SCH (21:07)
[2022-05-19] MEDS ORDERED: COSYNTROPIN 0.25 MG VIAL IVPUSH ONE (06:00)
[2022-05-19] MEDS: LEVOTHYROXINE NA 25 MCG TABLET (FP) PO SCH (06:01)
[2022-05-19 07:36] LABS: CHLORIDE 106 mmol/L (98-107); SODIUM 133 mmol/L (136-145)
[2022-05-19 07:37] LABS: ANION GAP 12 MMOL/L (8-16); BLOOD UREA NITROGEN 46.6 mg/dL (7-18); CO2 15 mmol/L (21-32); GLUCOSE,RANDOM 64 mg/dL (74-106)
[2022-05-19 07:41] LABS: CREATININE 5.4 mg/dL (0.55-1.3)
[2022-05-19 07:42] LABS: CALCIUM 5.5 mg/dL (8.5-10.1)
[2022-05-19] MEDS: predniSONE 5 MG TABLET (UD) PO SCH (09:46)
[2022-05-19] MEDS: NEBIVOLOL 2.5 MG TABLET (FP) PO SCH (09:46)
[2022-05-19] MEDS: MIRTAZAPINE 15 MG TABLET (FP) PO SCH (09:46)
[2022-05-19] MEDS: CLOPIDOGREL BISULFATE 75 MG TABLET (FP) PO SCH (09:46)
[2022-05-19] MEDS: HEPARIN NA (PORCINE) 5,000 UNITS/ML 1ML VIAL SQ SCH (09:47)
[2022-05-19 16:06] LABS: HEMATOCRIT 29.4 % (35.4-49); HEMOGLOBIN 9.7 GM/dL (11.7-16.9); MCH 24.4 pg (25.7-33.7); MEAN PLT VOLUME 7.9 fl (7.5-11.1); PLATELET COUNT 112 10^3/uL (134-434); RBC 3.98 M/mm3 (4.00-5.60); RDW 18.4 % (11.9-15.9)
[2022-05-19 16:07] LABS: WHITE BLOOD COUNT 14.2 K/mm3 (4.0-10.0)
[2022-05-19 17:26] LABS: ANISOCYTOSIS 3+; MACROCYTOSIS 0; OVALOCYTE 2+
[2022-05-19] MEDS: SODIUM CHLORIDE 0.45% 1,000 ML IV SCH (17:33)
[2022-05-19] MEDS: ROSUVASTATIN CA 10 MG TABLET PO SCH (21:21)
[2022-05-20] MEDS ORDERED: CALCIUM GLUCONATE IN NACL 1 GM/50 ML BAG IVPB ONE ×2 (01:15→14:30)
[2022-05-20] MEDS: LEVOTHYROXINE NA 50 MCG TABLET (FP) PO SCH (06:50)
[2022-05-20] MEDS ORDERED: MIRTAZAPINE 15 MG TABLET (FP) PO SCH (09:17)
[2022-05-20] MEDS: predniSONE 5 MG TABLET (UD) PO SCH (09:46)
[2022-05-20] MEDS: NEBIVOLOL 2.5 MG TABLET (FP) PO SCH (09:46)
[2022-05-20] MEDS: CLOPIDOGREL BISULFATE 75 MG TABLET (FP) PO SCH (09:46)
[2022-05-20 11:27] LABS: HEMATOCRIT 25.6 % (35.4-49); HEMOGLOBIN 8.7 GM/dL (11.7-16.9); MCH 25.1 pg (25.7-33.7); MEAN PLT VOLUME 7.2 fl (7.5-11.1); RBC 3.47 M/mm3 (4.00-5.60); RDW 18.3 % (11.9-15.9)
[2022-05-20 11:28] LABS: WHITE BLOOD COUNT 14.6 K/mm3 (4.0-10.0)
[2022-05-20 11:29] LABS: PLATELET COUNT 94 10^3/uL (134-434)
[2022-05-20] MEDS ORDERED: CALCIUM GLUCONATE 10% - 1,000 MG/10 ML VIAL IVPB ONE ×2 (12:22→14:30)
[2022-05-20] MEDS ORDERED: CALCITRIOL 0.25 MCG CAPSULE (FP) PO SCH (12:30)
[2022-05-20 12:41] LABS: ALBUMIN 2.2 g/dl (3.4-5.0); BLOOD UREA NITROGEN 60.2 mg/dL (7-18)
[2022-05-20 12:43] LABS: BILIRUBIN,TOTAL 0.3 mg/dL (0.2-1)
[2022-05-20 12:44] LABS: CREATININE 6.9 mg/dL (0.55-1.3)
[2022-05-20 12:45] LABS: TOT PROT 5.8 g/dl (6.4-8.2)
[2022-05-20 13:13] LABS: CALCIUM 7.6 mg/dL (8.5-10.1)
[2022-05-20] MEDS ORDERED: DEXTROSE 5% IVPB ONE (13:15)
[2022-05-20] MEDS ORDERED: CALCIUM GLUCONATE IVPB ONE (13:15)
[2022-05-20] MEDS ORDERED: WATER IVPB ONE (13:15)
[2022-05-20 13:16] LABS: ANISOCYTOSIS 0; MACROCYTOSIS 0; OVALOCYTE 1+
[2022-05-20] MEDS: SODIUM CHLORIDE 0.45% 1,000 ML IV SCH ×2 (13:16→15:24)
[2022-05-20 15:07] LABS: IGG QN IMMUNOGLOBULIN 1175 mg/dL (603-1613); IGG SUBCLASS 1 398 mg/dL (248-810); IGG SUBCLASS 2 35 mg/dL (130-555); IGG SUBCLASS 3 27 mg/dL (15-102)
[2022-05-20] MEDS: MIRTAZAPINE 15 MG TABLET (FP) PO SCH (21:27)
[2022-05-20] MEDS: ROSUVASTATIN CA 10 MG TABLET PO SCH (21:27)
[2022-05-21] MEDS: SODIUM CHLORIDE 0.45% 1,000 ML IV SCH ×3 (00:42→18:57)
[2022-05-21] MEDS: LEVOTHYROXINE NA 50 MCG TABLET (FP) PO SCH (06:07)
[2022-05-21 08:06] LABS: CARCINOEMBRYONIC ANTIGEN 1.7 ng/mL (0.0-4.7)
[2022-05-21] MEDS: CLOPIDOGREL BISULFATE 75 MG TABLET (FP) PO SCH (09:55)
[2022-05-21] MEDS: NEBIVOLOL 2.5 MG TABLET (FP) PO SCH (09:55)
[2022-05-21] MEDS: predniSONE 5 MG TABLET (UD) PO SCH (09:55)
[2022-05-21 16:07] LABS: ATYPICAL pANCA <1:20 titer (Neg:<1:20); C-ANCA <1:20 titer (Neg:<1:20)
[2022-05-21] MEDS: MIRTAZAPINE 15 MG TABLET (FP) PO SCH (22:22)
[2022-05-21] MEDS: ROSUVASTATIN CA 10 MG TABLET PO SCH (22:22)
[2022-05-22] MEDS: LEVOTHYROXINE NA 50 MCG TABLET (FP) PO SCH (06:05)
[2022-05-22] MEDS: CLOPIDOGREL BISULFATE 75 MG TABLET (FP) PO SCH (09:17)
[2022-05-22] MEDS: predniSONE 5 MG TABLET (UD) PO SCH (09:17)
[2022-05-22] MEDS: ACETAMINOPHEN 325 MG TABLET (FP) PO PRN (09:18)
[2022-05-22] MEDS: NEBIVOLOL 2.5 MG TABLET (FP) PO SCH (09:22)
[2022-05-22 10:48] LABS: CALCIUM 8.2 mg/dL (8.5-10.1)
[2022-05-22 10:49] LABS: ALBUMIN 2.4 g/dl (3.4-5.0); BLOOD UREA NITROGEN 55.7 mg/dL (7-18)
[2022-05-22 10:52] LABS: CREATININE 6.1 mg/dL (0.55-1.3)
[2022-05-22 10:53] LABS: BILIRUBIN,TOTAL 0.3 mg/dL (0.2-1)
[2022-05-22 10:54] LABS: TOT PROT 5.9 g/dl (6.4-8.2)
[2022-05-22 11:42] LABS: HEMATOCRIT 33.5 % (35.4-49); HEMOGLOBIN 10.5 GM/dL (11.7-16.9); MCH 23.6 pg (25.7-33.7); MCHC 31.5 g/dl (32.0-35.9); MEAN PLT VOLUME 7.6 fl (7.5-11.1); PLATELET COUNT 161 10^3/uL (134-434); RBC 4.46 M/mm3 (4.00-5.60); RDW 19.4 % (11.9-15.9)
[2022-05-22 12:10] LABS: ANISOCYTOSIS 1+; MACROCYTOSIS 0
[2022-05-22 12:16] LABS: WHITE BLOOD COUNT 14.3 K/mm3 (4.0-10.0)
[2022-05-22] MEDS: SODIUM CHLORIDE 0.45% 1,000 ML IV SCH (16:52)
[2022-05-22] MEDS: ROSUVASTATIN CA 10 MG TABLET PO SCH (23:30)
[2022-05-22] MEDS: HEPARIN NA (PORCINE) 5,000 UNITS/ML 1ML VIAL SQ SCH (23:31)
[2022-05-22] MEDS: MIRTAZAPINE 15 MG TABLET (FP) PO SCH (23:31)
[2022-05-23] MEDS: LEVOTHYROXINE NA 50 MCG TABLET (FP) PO SCH (06:31)
[2022-05-23 06:39] VITALS: RESP 20
[2022-05-23] MEDS: predniSONE 5 MG TABLET (UD) PO SCH (09:33)
[2022-05-23] MEDS: NEBIVOLOL 2.5 MG TABLET (FP) PO SCH (09:33)
[2022-05-23] MEDS: HEPARIN NA (PORCINE) 5,000 UNITS/ML 1ML VIAL SQ SCH (09:33)
[2022-05-23 11:24] VITALS: BP 132/69; PULSE 70; TEMP 98
== END 2022-05-23 14:40 | disposition short-term general hospital (02) | DRG 841 ==
LOC: JER 07:48 → JERBED 11:47 → J8W 15:51
PROVIDERS: ADMIT Internal Medicine; ATTEND Internal Medicine
DX: C85.10 Unspecified B-cell lymphoma, unspecified site (principal); E27.40 Unspecified adrenocortical insufficiency; E87.20 Acidosis, unspecified; N17.9 Acute kidney failure, unspecified; K86.2 Cyst of pancreas; E03.9 Hypothyroidism, unspecified; E78.5 Hyperlipidemia, unspecified; N18.9 Chronic kidney disease, unspecified; D72.829 Elevated white blood cell count, unspecified; D69.6 Thrombocytopenia, unspecified; I25.10 Atherosclerotic heart disease of native coronary artery without angina pectoris; R16.1 Splenomegaly, not elsewhere classified; I71.40 Abdominal aortic aneurysm, without rupture, unspecified; E83.51 Hypocalcemia
CPT/HCPCS: 0241U-QW; 36415; 71045-TC-FY; 71250-TC; 74176-TC; 74181-TC; 76775-TC; 80048; 80053; 81003; 82378; 82436; 82533; 82570; 82607; 82728; 82747; 82784; 82787; 83010; 83520; 83540; 83550; 83605; 83615; 83883; 84133; 84155; 84165; 84300; 84443; 84484; 85014; 85025; 85045; 85610; 85730; 86038; 86160; 86256; 86301; 86334; 86850; 86880; 86900; 86901; 87040; 87086; 87340; 87517; 87522; 93005; 93010; 99285-25; J0834; J1644

== ENCOUNTER 2022-07-17 04:40 | Day surgery (SDC) | payer OTHER, BC ==
[2022-07-17 10:19] VITALS: TEMP 97
[2022-07-17 15:20] VITALS: BP 90/60; PULSE 78; RESP 16
== END 2022-07-17 13:30 | disposition home or self-care (01) ==
LOC: JRADIR 04:40
PROVIDERS: ATTEND Internal Medicine
PROC: 0TB03ZX Excision of Right Kidney, Percutaneous Approach, Diagnostic (ICD-10-PCS; principal; 2022-07-17)
DX: N05.8 Unspecified nephritic syndrome with other morphologic changes (principal)
CPT/HCPCS: 50200; 88300-TC

== ENCOUNTER 2022-08-06 08:57 | Day surgery (SDC) | payer OTHER, BC ==
[2022-08-06 08:29] LABS: BASO % 1.1 % (0-2.0); EOS % 0.6 % (0-4.5); HEMATOCRIT 40.3 % (35.4-49); HEMOGLOBIN 13.7 GM/dL (11.7-16.9); LYMPH % 26.2 % (8-40); MCH 27.9 pg (25.7-33.7); MEAN CELL VOLUME 82.2 fl (80-96); MEAN PLT VOLUME 7.5 fl (7.5-11.1); MONO % 9.4 % (3.8-10.2); NEUT % 62.7 % (42.8-82.8); PLATELET COUNT 194 10^3/uL (134-434); RBC 4.91 M/mm3 (4.00-5.60); RDW 22.1 % (11.9-15.9); WHITE BLOOD COUNT 7.2 K/mm3 (4.0-10.0)
[2022-08-06 08:58] LABS: ALBUMIN 2.5 g/dl (3.4-5.0); BLOOD UREA NITROGEN 43.8 mg/dL (7-18); CALCIUM 8.3 mg/dL (8.5-10.1)
[2022-08-06 09:00] LABS: BILIRUBIN,DIRECT 0.2 mg/dL (0.0-0.2); CREATININE 4.4 mg/dL (0.55-1.3)
[2022-08-06 09:03] LABS: BILIRUBIN,TOTAL 0.6 mg/dL (0.2-1); TOT PROT 6.6 g/dl (6.4-8.2)
[2022-08-06 09:48] LABS: ANISOCYTOSIS 1+; MACROCYTOSIS 1+
[2022-08-06] MEDS ORDERED: ACETAMINOPHEN 325 MG TABLET (FP) PO ONE (10:00)
[2022-08-06] MEDS ORDERED: DIPHENHYDRAMINE 50 MG in SODIUM CHLORIDE 50 ML IVPB ONE (10:00)
[2022-08-06] MEDS ORDERED: SODIUM CHLORIDE 250 ML IV ONE (10:00)
[2022-08-06] MEDS ORDERED: DEXAMETHASONE SOD PHOSPHATE 10 MG/1 ML VIAL IVPB ONE (10:15)
[2022-08-06] MEDS ORDERED: SODIUM CHLORIDE IVPB ONE (10:30)
[2022-08-06] MEDS ORDERED: RITUXIMAB ABBS IVPB ONE (10:30)
[2022-08-06] MEDS ORDERED: PORTA CATH FLUSH 10 ML IVPUSH PRN (14:45)
[2022-08-06 14:46] VITALS: RESP 20; TEMP 97.4
[2022-08-07 08:06] VITALS: BP 92/52; PULSE 69
== END 2022-08-06 17:08 | disposition home or self-care (01) ==
LOC: JONCCHEMO 08:57
PROVIDERS: ATTEND Internal Medicine Hematology & Oncology
DX: Z51.11 Encounter for antineoplastic chemotherapy (principal); C85.10 Unspecified B-cell lymphoma, unspecified site
CPT/HCPCS: 36415; 80048; 80076; 83615; 85025; 86704; 87340; 96367; 96413; 96415; J1100; Q5115

== ENCOUNTER 2022-08-13 08:20 | Day surgery (SDC) | payer OTHER, BC ==
[2022-08-13 09:30] LABS: BLOOD UREA NITROGEN 40.7 mg/dL (7-18); CALCIUM 8.2 mg/dL (8.5-10.1)
[2022-08-13 09:31] LABS: ALBUMIN 2.3 g/dl (3.4-5.0)
[2022-08-13 09:33] LABS: BILIRUBIN,DIRECT 0.2 mg/dL (0.0-0.2)
[2022-08-13 09:34] LABS: CREATININE 3.6 mg/dL (0.55-1.3)
[2022-08-13 09:35] LABS: BILIRUBIN,TOTAL 0.8 mg/dL (0.2-1); TOT PROT 6.4 g/dl (6.4-8.2)
[2022-08-13 09:45] LABS: HEMATOCRIT 33.2 % (35.4-49); MCH 26.9 pg (25.7-33.7); MEAN CELL VOLUME 81.5 fl (80-96); MEAN PLT VOLUME 7.4 fl (7.5-11.1); RBC 4.07 M/mm3 (4.00-5.60); RDW 21.1 % (11.9-15.9); WHITE BLOOD COUNT 2.9 K/mm3 (4.0-10.0)
[2022-08-13 09:47] LABS: PLATELET COUNT 116 10^3/uL (134-434)
[2022-08-13] MEDS ORDERED: ACETAMINOPHEN 325 MG TABLET (FP) PO ONE (10:00)
[2022-08-13] MEDS ORDERED: DIPHENHYDRAMINE 50 MG in SODIUM CHLORIDE 50 ML IVPB ONE (10:00)
[2022-08-13] MEDS ORDERED: SODIUM CHLORIDE 250 ML IV ONE (10:00)
[2022-08-13] MEDS ORDERED: SODIUM CHLORIDE IVPB ONE (10:30)
[2022-08-13] MEDS ORDERED: RITUXIMAB ABBS IVPB ONE (10:30)
[2022-08-13 10:40] LABS: ANISOCYTOSIS 0; MACROCYTOSIS 0; OVALOCYTE 1+
[2022-08-13 16:44] VITALS: BP 101/62; PULSE 75; RESP 20; TEMP 97.8
== END 2022-08-13 16:50 | disposition home or self-care (01) ==
LOC: JONCCHEMO 08:20
PROVIDERS: ATTEND Internal Medicine Hematology & Oncology
PROC: 3E03305 Introduction of Other Antineoplastic into Peripheral Vein, Percutaneous Approach (ICD-10-PCS; principal; 2022-08-13)
PROC: 3E033GC Introduction of Other Therapeutic Substance into Peripheral Vein, Percutaneous Approach (ICD-10-PCS; 2022-08-13)
PROC: 3E0337Z Introduction of Electrolytic and Water Balance Substance into Peripheral Vein, Percutaneous Approach (ICD-10-PCS; 2022-08-13)
DX: Z51.11 Encounter for antineoplastic chemotherapy (principal); C85.10 Unspecified B-cell lymphoma, unspecified site
CPT/HCPCS: 36415; 80048; 80076; 85025; 86704; 96367; 96413; Q5115

== ENCOUNTER 2022-08-20 08:18 | Day surgery (SDC) | payer OTHER, BC ==
[2022-08-20 09:21] LABS: HEMATOCRIT 33.5 % (35.4-49); HEMOGLOBIN 11.3 GM/dL (11.7-16.9); MCH 28.1 pg (25.7-33.7); MCHC 33.8 g/dl (32.0-35.9); MEAN CELL VOLUME 83.1 fl (80-96); MEAN PLT VOLUME 7.6 fl (7.5-11.1); PLATELET COUNT 148 10^3/uL (134-434); RBC 4.04 M/mm3 (4.00-5.60); RDW 20.5 % (11.9-15.9); WHITE BLOOD COUNT 3.9 K/mm3 (4.0-10.0)
[2022-08-20 09:45] LABS: CALCIUM 8.4 mg/dL (8.5-10.1)
[2022-08-20 09:46] LABS: ALBUMIN 2.4 g/dl (3.4-5.0); BLOOD UREA NITROGEN 36.1 mg/dL (7-18)
[2022-08-20 09:48] LABS: BILIRUBIN,DIRECT 0.2 mg/dL (0.0-0.2)
[2022-08-20 09:49] LABS: CREATININE 3.5 mg/dL (0.55-1.3)
[2022-08-20 09:50] LABS: TOT PROT 5.8 g/dl (6.4-8.2)
[2022-08-20 09:51] LABS: BILIRUBIN,TOTAL 0.5 mg/dL (0.2-1)
[2022-08-20] MEDS ORDERED: SODIUM CHLORIDE 250 ML IV ONE (10:00)
[2022-08-20] MEDS ORDERED: DIPHENHYDRAMINE 50 MG in SODIUM CHLORIDE 50 ML IVPB ONE (10:00)
[2022-08-20] MEDS ORDERED: ACETAMINOPHEN 325 MG TABLET (FP) PO ONE (10:00)
[2022-08-20] MEDS ORDERED: RITUXIMAB ABBS IVPB ONE (10:30)
[2022-08-20] MEDS ORDERED: SODIUM CHLORIDE IVPB ONE (10:30)
[2022-08-20 16:20] VITALS: BP 93/54; PULSE 70; RESP 20; TEMP 98.2
== END 2022-08-20 14:30 | disposition home or self-care (01) ==
LOC: JONCCHEMO 08:18
PROVIDERS: ATTEND Internal Medicine Hematology & Oncology
DX: Z51.11 Encounter for antineoplastic chemotherapy (principal); C85.10 Unspecified B-cell lymphoma, unspecified site
CPT/HCPCS: 36415; 80048; 80076; 83615; 85025; 86704; 86705; 86708; 86709; 87340; 87517; 96367; 96413; 96415; Q5115

== ENCOUNTER 2022-08-27 08:17 | Day surgery (SDC) | payer OTHER, BC ==
[2022-08-27 08:54] LABS: BASO % 1.2 % (0-2.0); EOS % 2.4 % (0-4.5); HEMATOCRIT 32.4 % (35.4-49); HEMOGLOBIN 10.5 GM/dL (11.7-16.9); LYMPH % 36.5 % (8-40); MCH 26.7 pg (25.7-33.7); MCHC 32.5 g/dl (32.0-35.9); MEAN CELL VOLUME 82.1 fl (80-96); MEAN PLT VOLUME 7.3 fl (7.5-11.1); MONO % 12.2 % (3.8-10.2); NEUT % 47.7 % (42.8-82.8); PLATELET COUNT 133 10^3/uL (134-434); RBC 3.95 M/mm3 (4.00-5.60); RDW 20.1 % (11.9-15.9); WHITE BLOOD COUNT 2.9 K/mm3 (4.0-10.0)
[2022-08-27 09:15] LABS: ALBUMIN 2.2 g/dl (3.4-5.0)
[2022-08-27 09:17] LABS: BILIRUBIN,DIRECT 0.2 mg/dL (0.0-0.2); CREATININE 3.6 mg/dL (0.55-1.3)
[2022-08-27 09:18] LABS: TOT PROT 6.3 g/dl (6.4-8.2)
[2022-08-27 09:20] LABS: BILIRUBIN,TOTAL 0.5 mg/dL (0.2-1)
[2022-08-27] MEDS ORDERED: DIPHENHYDRAMINE 50 MG in SODIUM CHLORIDE 50 ML IVPB ONE (10:00)
[2022-08-27] MEDS ORDERED: SODIUM CHLORIDE 250 ML IV ONE (10:00)
[2022-08-27] MEDS ORDERED: ACETAMINOPHEN 325 MG TABLET (FP) PO ONE (10:00)
[2022-08-27] MEDS ORDERED: RITUXIMAB ABBS IVPB ONE (10:30)
[2022-08-27] MEDS ORDERED: SODIUM CHLORIDE IVPB ONE (10:30)
[2022-08-27 18:20] VITALS: BP 97/57; PULSE 68; RESP 20; TEMP 97.8
== END 2022-08-27 16:30 | disposition home or self-care (01) ==
LOC: JONCCHEMO 08:17
PROVIDERS: ATTEND Internal Medicine Hematology & Oncology
DX: Z51.11 Encounter for antineoplastic chemotherapy (principal); C85.10 Unspecified B-cell lymphoma, unspecified site
CPT/HCPCS: 36415; 80048; 80076; 83615; 85025; 86704; 86708; 87340; 96367; 96413; 96415; Q5115

== ENCOUNTER 2022-12-19 11:36 | Inpatient (IN) | payer OTHER, BC ==
[2022-12-19] MEDS ORDERED: SODIUM CHLORIDE 0.9% 500 ML INFUS.BAG IV ONE ×2 (11:53→12:45)
[2022-12-19 13:12] LABS: POTASSIUM 5.2 mmol/L (3.5-5.1)
[2022-12-19 13:13] LABS: CALCIUM 8.5 mg/dL (8.5-10.1)
[2022-12-19 13:14] LABS: ALBUMIN 1.9 g/dl (3.4-5.0); MAGNESIUM 2.5 mg/dL (1.8-2.4)
[2022-12-19 13:16] LABS: CREATININE 6.7 mg/dL (0.55-1.3)
[2022-12-19 13:17] LABS: BILIRUBIN,TOTAL 1.3 mg/dL (0.2-1); TOT PROT 6.1 g/dl (6.4-8.2); VENOUS BASE EXCESS -15.5 mmol/L (-2-2); VENOUS O2 SATURATION 66.1 % (70-80); VENOUS PCO2 32.2 mmHg (38-52)
[2022-12-19 13:22] LABS: LACTIC ACID 9.6 mmol/L (0.4-2.0)
[2022-12-19 13:25] LABS: VENOUS PH 7.177 (7.310-7.410)
[2022-12-19 13:38] LABS: EPI CELLS 30 /uL (0-25.1); HYALINE CASTS 20 /uL (0-3.1); PH,URINE 5.5 (5.0-8.0); URINE APPEARANCE CLOUDY; URINE BACTERIA 656 /uL (0-1359); URINE BILIRUBIN NEGATIVE (NEGATIVE); URINE COLOR YELLOW; URINE GLUCOSE (UA) NEGATIVE (NEGATIVE); URINE KETONE NEGATIVE (NEGATIVE); URINE LEUK ESTERASE TRACE (NEGATIVE); URINE NITRITE NEGATIVE (NEGATIVE); URINE PROTEIN 3+ (NEGATIVE); URINE RBC 19 /uL (0-23.9); URINE WBC 345 /uL (0-25.8)
[2022-12-19] MEDS ORDERED: PIPERACILLIN/TAZOB 4.5 GM 4.5 GM in DEXTROSE 5%-WATER 100 ML IVPB ONE (13:39)
[2022-12-19] MEDS ORDERED: VANCOMYCIN 1,000 MG in DEXTROSE 5%-WATER - 250 ML IVPB ONE (13:39)
[2022-12-19] MEDS ORDERED: PIPERACILLIN/TAZOB 4.5 GM 4.5 GM/100 ML BAG IVPB ONE (13:45)
[2022-12-19] MEDS ORDERED: VANCOMYCIN/WATER FOR INJ (PEG) 1,000 MG/200 ML BAG IVPB ONE (13:46)
[2022-12-19 14:02] LABS: YEAST NEGATIVE (NEGATIVE)
[2022-12-19] MEDS ORDERED: SODIUM BICARBONATE 8.4% 50 MEQ/50 ML DISP.SYRIN IVPUSH ONE (14:14)
[2022-12-19] MEDS ORDERED: SODIUM BICARBONATE 8.4% 50 MEQ/50 ML DISP.SYRIN ONE (14:53)
[2022-12-19] MEDS: LACTATED RINGERS SOLUTION 1,000 ML/1,000 ML INFUS.BAG IV SCH (15:03)
[2022-12-19 15:15] LABS: HEMATOCRIT 30.9 % (35.4-49); HEMOGLOBIN 9.7 GM/dL (11.7-16.9); MCH 25.4 pg (25.7-33.7); MCHC 31.3 g/dl (32.0-35.9); MEAN CELL VOLUME 81.1 fl (80-96); RBC 3.81 M/mm3 (4.00-5.60); RDW 19.4 % (11.9-15.9)
[2022-12-19 16:02] LABS: ANISOCYTOSIS 2+; MACROCYTOSIS 0; OVALOCYTE 2+; TOXIC GRANULATION 2+
[2022-12-19 16:05] LABS: PLATELET COUNT 184 10^3/uL (134-434)
[2022-12-19 16:47] LABS: LACTIC ACID 3.8 mmol/L (0.4-2.0)
[2022-12-19] MEDS ORDERED: SODIUM CHLORIDE 1,000 ML IV SCH (19:45)
[2022-12-19] MEDS ORDERED: PIPERACILLIN/TAZOB 2.25 GM 2.25 GM in DEXTROSE 5%-WATER - 50 ML IVPB SCH (21:00)
[2022-12-19] MEDS: PANTOPRAZOLE SODIUM 40 MG VIAL IVPUSH SCH (22:10)
[2022-12-19] MEDS: SODIUM BICARBONATE 650 MG TABLET PO SCH (22:12)
[2022-12-19] MEDS: PIPERACILLIN/TAZOB 2.25 GM 2.25 GM in DEXTROSE 5%-WATER - 50 ML IVPB SCH (22:12)
[2022-12-20 02:51] VITALS: BMI 19.5
[2022-12-20] MEDS: PIPERACILLIN/TAZOB 2.25 GM 2.25 GM in DEXTROSE 5%-WATER - 50 ML IVPB SCH ×2 (03:04→09:58)
[2022-12-20] MEDS: LEVOTHYROXINE NA 50 MCG TABLET (FP) PO SCH (06:16)
[2022-12-20] MEDS: PANTOPRAZOLE SODIUM 40 MG VIAL IVPUSH SCH (09:58)
[2022-12-20] MEDS: predniSONE 5 MG TABLET (UD) PO SCH (09:58)
[2022-12-20] MEDS: SODIUM BICARBONATE 650 MG TABLET PO SCH (09:58)
[2022-12-20] MEDS: LACTATED RINGERS SOLUTION 1,000 ML/1,000 ML INFUS.BAG IV SCH (09:59)
[2022-12-20] MEDS ORDERED: morphine SULFATE 4 MG/ML VIAL IVPUSH PRN (10:02)
[2022-12-20] MEDS: MORPHINE SULFATE/0.9% NACL/PF 100 MG/100 ML BAG IVPB SCH (15:38)
[2022-12-21] MEDS: SODIUM BICARBONATE 650 MG TABLET PO SCH ×2 (02:48→09:52)
[2022-12-21] MEDS: LEVOTHYROXINE NA 50 MCG TABLET (FP) PO SCH (07:27)
[2022-12-21] MEDS: predniSONE 5 MG TABLET (UD) PO SCH (09:51)
[2022-12-21] MEDS: PANTOPRAZOLE SODIUM 40 MG VIAL IVPUSH SCH (09:59)
[2022-12-21 14:40] VITALS: BP 76/41; PULSE 101; RESP 22; TEMP 98.5
[2022-12-21] MEDS: MORPHINE SULFATE/0.9% NACL/PF 100 MG/100 ML BAG IVPB SCH (16:35)
== END 2022-12-21 18:00 | disposition expired | DRG 840 ==
LOC: JER 11:36 → JERBED 14:34 → J4W 19:10 → OBSVTOIN 12-20 09:49
PROVIDERS: ADMIT Internal Medicine; ATTEND Internal Medicine
DX: C85.90 Non-Hodgkin lymphoma, unspecified, unspecified site (principal); E43 Unspecified severe protein-calorie malnutrition; K92.2 Gastrointestinal hemorrhage, unspecified; R64 Cachexia; Z68.1 Body mass index [BMI] 19.9 or less, adult; R18.8 Other ascites; N17.9 Acute kidney failure, unspecified; K86.2 Cyst of pancreas; I25.110 Atherosclerotic heart disease of native coronary artery with unstable angina pectoris; E87.20 Acidosis, unspecified; E27.49 Other adrenocortical insufficiency; D72.829 Elevated white blood cell count, unspecified; E03.9 Hypothyroidism, unspecified; N18.9 Chronic kidney disease, unspecified; R00.0 Tachycardia, unspecified; I95.9 Hypotension, unspecified; E78.5 Hyperlipidemia, unspecified; E86.0 Dehydration; R74.8 Abnormal levels of other serum enzymes; R13.10 Dysphagia, unspecified; Z95.5 Presence of coronary angioplasty implant and graft
CPT/HCPCS: 0241U-QW; 36415; 71045-TC-FY; 74220-TC-FY; 80053; 81003; 82272; 82550; 82553; 82803; 82962; 83605; 83735; 84484; 85025; 87040; 87086; 93005; 93010; 99284-25; G0378